=== PATIENT | female | born 1985 | race Caucasian/White ===

== ENCOUNTER → 2017-12-20 | Outpatient (CLI) | payer OTHER ==
[~2017-12-20] MED LIST: IRON325 M1 PO; MOTRIN 600600 MG/TAB PO; PERCOCET 325 MG1 TA2 PO; PRENATAL1 TA1 PO; ZYRTEC 10MG10 MG PO
== END ==
LOC: COL.LAB 10:19
DX: Z01.89 Encounter for other specified special examinations (principal); Z53.9 Procedure and treatment not carried out, unspecified reason

== ENCOUNTER → 2017-12-20 | Outpatient (CLI) | payer OTHER ==
[2017-12-20 16:21] LABS: BASO # 0.1 (0.0-0.2); BASO % 0.5 % (0.0-2.0); EOS # 0.2 (0.0-0.7); EOS % 2.4 % (0-4.0); GRAN # 6.4 (1.4-6.5); GRAN % 64.3 % (42.2-75.2); HEMOGLOBIN 12.1 g/dl (12.5-16.0); LYMPH # 2.6 (1.2-3.4); LYMPH % 25.8 % (20.0-51.0); MEAN CELL VOLUME 91 fl (80.0-100.0); MEAN CORPUSCULAR HEMOGLOBIN 30 pg (27.0-31.0); MEAN CORPUSCULAR HGB CONC 33 g/dl (33.0-37.0); MONO # 0.7 (0.1-0.6); MONO % 6.5 % (1.7-9.3); PLATELET COUNT 417 K/mm3 (130-400); RED BLOOD COUNT 4.05 M/mm3 (4.10-5.30); REDCELL DISTRIBUTION WIDTH-CV 12.6 % (11.5-14.5)
[2017-12-20 16:30] LABS: CALCIUM 8.9 mg/dL (8.4-10.2); CREATININE, serum 0.62 mg/dL (0.52-1.25); POTASSIUM 4.1 mmol/L (3.4-5.0)
== END ==
LOC: COL.LAB 10:25
PROVIDERS: Family Medicine
DX: R42 Dizziness and giddiness (principal)

== ENCOUNTER → 2017-12-20 | Outpatient (CLI) | payer BC, OTHER | LOC: COL.LAB 10:11 | DX: Z01.89 Encounter for other specified special examinations (principal) ==

== ENCOUNTER → 2019-09-19 | Outpatient (CLI) | payer BC, OTHER ==
[~2019-09-19] MED LIST changes: +NORCO 325 MG-51 TAB PO; +ZOLOFT 50MG50 MG PO; +[UNRECOGNIZED DRUG - CODE] PO
[2019-09-19 08:51] LABS: ALBUMIN 4.5 gm/dL (3.5-5.0); BASO # 0.1 (0.0-0.2); BASO % 0.6 % (0.0-2.0); BILIRUBIN,TOTAL 1.3 mg/dL (0.0-1.0); CALCIUM 9.8 mg/dL (8.4-10.2); CREATININE, serum 0.75 (0.52-1.25); EOS # 0.3 (0.0-0.7); EOS % 3.1 % (0-4.0); GRAN % 57.3 % (42.2-75.2); HEMATOCRIT 40.1 % (37.0-47.0); HEMOGLOBIN 13.1 g/dl (12.5-16.0); LYMPH # 2.6 (1.2-3.4); LYMPH % 29.4 % (20.0-51.0); MEAN CELL VOLUME 91 fl (80.0-100.0); MEAN CORPUSCULAR HEMOGLOBIN 30 pg (27.0-31.0); MEAN CORPUSCULAR HGB CONC 33 g/dl (33.0-37.0); MEAN PLATELET VOLUME 8.8 fl (7.4-10.4); MONO # 0.8 (0.1-0.6); PLATELET COUNT 417 K/mm3 (130-400); RED BLOOD COUNT 4.41 M/mm3 (4.10-5.30); REDCELL DISTRIBUTION WIDTH-CV 13.1 % (11.5-14.5); TOTAL PROTEIN 8.6 gm/dL (6.4-8.2)
== END ==
LOC: COL.RAD 08:13 → COL.LAB 08:13 → COL.RAD 10:30
DX: K80.20 Calculus of gallbladder without cholecystitis without obstruction (principal)

== ENCOUNTER 2019-09-25 07:34 | Day surgery (SDC) | payer BC, OTHER ==
[~2019-09-25] VITALS: Ht 165.1 cm; Wt 92.7 kg
[~2019-09-25 07:34] MED LIST changes: -NORCO 325 MG-51 TAB PO; -ZOLOFT 50MG50 MG PO; -[UNRECOGNIZED DRUG - CODE] PO
[2019-09-25 08:07] VITALS: BP 124/84; PULSE 87; TEMP 97.9
[2019-09-25] MEDS ORDERED: ZOLOFT 50MG50 MG PO (08:11)
[2019-09-25] MEDS ORDERED: [UNRECOGNIZED DRUG - CODE] PO (08:12)
--- NOTE | 2019-09-25 08:13 | NUR ---
TO RM AT 0737- CALL LIGHT IN REACH WILL CALL FOR RIDE HOME
[2019-09-25] MEDS ORDERED: NORCO 325 MG-51 TAB PO (11:23)
[2019-09-25 11:55] VITALS: BP 124/78; PULSE 88; TEMP 97.7
--- NOTE | 2019-09-25 11:55 | NUR ---
TO RM 5 PER CART FROM PACU. C/O "SORENESS AND TIGHTNESS" D DENIES NAUSEA OR VOMITING. 02 SAT 92% ON ROOM AIR ENCOURAGED TO TAKE DEEP BREATHS BANDAIDES OVER INCISIONS SITES CLEAN DRY AND INTACT. PATIENT EATING ICE CHIPS
[2019-09-25 12:10] VITALS: BP 108/87; PULSE 81
--- NOTE | 2019-09-25 12:10 | NUR ---
RECEIVED ICE WATER AND CRACKERS.
[2019-09-25 12:25] VITALS: BP 129/78; PULSE 91
--- NOTE | 2019-09-25 12:25 | NUR ---
C/O INCREASED TIGHTNESS ACROSS ABDOMEN. ENCOURAGED PATIENT TO PASS GAS AND BELTCH.
--- NOTE | 2019-09-25 12:30 | NUR ---
RECEIVED NORCO 5MG 1 TAB.
--- NOTE | 2019-09-25 12:45 | NUR ---
RESTING QUIETLY AND EATING ICE CHIPS.
[2019-09-25 13:00] VITALS: BP 130/64; PULSE 85
--- NOTE | 2019-09-25 13:00 | NUR ---
RECEIVED KYAWO PER REQUEST.
--- NOTE | 2019-09-25 13:15 | NUR ---
AMBULATED TO [facility] WITH ASSIST. PATIENT VOIDED AND AMBULATED BACK TO BED. PATIENT STATED SHE BELTCHED AND FELT MUCH BETTER.
[2019-09-25 13:34] VITALS: BP 143/81; PULSE 92
--- NOTE | 2019-09-25 13:35 | NUR ---
RECEIVED DISCHARGE INSTRUCTIONS AND VERBALIZED UNDERSTANDING. FLUSHED INT AND WRAPPED WITH COBAN. PATIENT TO USE INT FOR ERCP SCHEDULED FOR 09/26/2019
--- NOTE | 2019-09-25 14:00 | NUR ---
DISCHARGED PER WC BY NURSING STAFF TO PRIVATE CAR IN CARE OF
== END 2019-09-25 14:24 | disposition home or self-care (01) ==
LOC: SDCO 07:34
DX: K80.10 Calculus of gallbladder with chronic cholecystitis without obstruction (principal); I10 Essential (primary) hypertension; E78.00 Pure hypercholesterolemia, unspecified; J30.2 Other seasonal allergic rhinitis; E28.2 Polycystic ovarian syndrome; F41.9 Anxiety disorder, unspecified; Z91.048 Other nonmedicinal substance allergy status
CPT/HCPCS: J0690; J1100; J1885; J2175; J2405; J2704; J3010; J7120; Q9967

== ENCOUNTER 2019-09-26 11:12 | Day surgery (SDC) | payer BC, OTHER ==
[2019-09-25 11:55] VITALS: BP 124/78; PULSE 88; TEMP 97.7
--- NOTE | 2019-09-25 11:55 | NUR ---
TO RM 5 PER CART FROM PACU. ALERT ORIENTED X3 TALKING TO STAFF . C/O "SOME PAIN BUT MOSTLY TIGHTNESS. BANDAIDES OVER 3 INCISION SITES CLEAN DRY INTACT. ENCOURAGED PATEIENT TO TAKE DEEP BEATHES. DENIES N/V. EATING ICE CHIPS.
[2019-09-25 12:10] VITALS: BP 108/87; PULSE 81
--- NOTE | 2019-09-25 12:10 | NUR ---
RECEIVED WATER PATIENT C/O ABDOMEN FEELING TIGHT. ENCOURAGED PATIENT TO BELTCH.
[2019-09-25 12:25] VITALS: BP 129/78; PULSE 91
--- NOTE | 2019-09-25 12:25 | NUR ---
C/O PAIN "MAYBE A LITTLE WORSE"
--- NOTE | 2019-09-25 12:30 | NUR ---
RECEIVED NORCO 5MG 1 TAB.
[2019-09-25 12:35] VITALS: BP 145/75; PULSE 83
[2019-09-25 12:45] VITALS: BP 137/74; PULSE 78
[2019-09-25 13:00] VITALS: BP 1300/64; PULSE 85
--- NOTE | 2019-09-25 13:00 | NUR ---
ATE CRACKERS AND BEEN DRING WATER. RECEIVED JELLO.
--- NOTE | 2019-09-25 13:15 | NUR ---
AMBULATED TO BATHROOM, VOIDED AND AMBULATED BACK TO RECLINER. FLUSHED INT- LEFT IN TO BE USED TOMORROW FOR ERCP.
--- NOTE | 2019-09-25 13:35 | NUR ---
RECEIVED DISCHARGE INSTRUCTIONS AND VERBALIZED UNDERSTANDING. PATIENT CALLED FOR RIDE HOME.
--- NOTE | 2019-09-25 14:04 | NUR ---
DISCHARGED PER WC BY NURSING STAFF TO PRIVATE CAR IN CARE OF -[facility].
[2019-09-26] VITALS (7 sets, daily range): BP systolic 128–149; BP diastolic 48–97; PULSE 54–80; TEMP 97.5
[~2019-09-26] VITALS: Ht 165.1 cm; Wt 93.0 kg
[~2019-09-26 11:12] MED LIST changes: +NORCO 325 MG-51 TAB PO; +ZOLOFT 50MG50 MG PO; +[UNRECOGNIZED DRUG - CODE] PO
--- NOTE | 2019-09-26 11:51 | NUR ---
INT IN L WRIST LEFT IN FOLLOWING HER SURGERY YESTERDAY. INFILTRATED UPON FLUSHING THIS MORNING
--- NOTE | 2019-09-26 12:25 | NUR ---
TO RM 5 PER CART FROM ENDOSCOPY FOLLOWING AN ERCP. ALERT ORIENTED X 3, TALKING TO STAFF. DR COTTON TALKED WITH PATIENT. PATIENTS WAS CALLED AND UPDATED. PATIENT CONTINUES TO BE ON CART AND RESTING QUIELTY. DENIES NAUSEA.
--- NOTE | 2019-09-26 13:10 | NUR ---
BANDAIDES OVER INCISIONS WHICH PATIENT RECEIVED FROM SURGERY YESTERDAY. PATIENT STATED ONE OF THE INCIDIONS WHERE COMING LOOSE. THIS NURSE CHECKED THE INCISION AND EDGES WERE WELL APPROXIMATED.
--- NOTE | 2019-09-26 13:25 | NUR ---
RECEIVED APPLE JUICE. PATIENT TAKING SIPS AND RESTING.
--- NOTE | 2019-09-26 13:45 | NUR ---
C/O PAIN AND TOOK ON OF OWN PAIN MEDICATIONS SHE WAS PRESCRIBED YESTEDAY FROM DR LARSEN POST OP. AMBULATED TO BATHROOM VOIDED AND AMBULATED BACK TO RECLINER.
--- NOTE | 2019-09-26 14:07 | NUR ---
SITTING IN RECLINER AND RESTING QUIETLY
--- NOTE | 2019-09-26 14:35 | NUR ---
PATIENT STATED SHE WAS FEELING BETTER AND READY TO GO HOME.
--- NOTE | 2019-09-26 14:40 | NUR ---
RECEIVED DISCHARGE INSTRUCTIONS AND VERBALIZED UNDERSTANDING DISCONTINUED IV AND INT- CATHETER INTACT PATIENT GETTING DRESSED.
--- NOTE | 2019-09-26 14:57 | NUR ---
DISCHARGED PER WC BY NURSING STAFF TO PRIVATE CAR IN CARE OF .
== END 2019-09-26 14:59 | disposition home or self-care (01) ==
LOC: SDCO 11:12
DX: K80.50 Calculus of bile duct without cholangitis or cholecystitis without obstruction (principal); I10 Essential (primary) hypertension; E78.00 Pure hypercholesterolemia, unspecified; E28.2 Polycystic ovarian syndrome; J30.2 Other seasonal allergic rhinitis; E66.9 Obesity, unspecified; Z90.49 Acquired absence of other specified parts of digestive tract
CPT/HCPCS: C1769; J2704; J7030; Q9967

== ENCOUNTER 2020-05-22 10:38 | Emergency (ER) | payer BC, OTHER ==
[~2020-05-22] VITALS: Ht 165.1 cm; Wt 90.9 kg
[2020-05-22 10:51] VITALS: TEMP 98.2
[2020-05-22 11:23] LABS: BASO % 0.4 % (0.0-2.0); EOS # 0.1 (0.0-0.7); EOS % 1.2 % (0-4.0); GRAN # 8.4 (1.4-6.5); GRAN % 74.7 % (42.2-75.2); HEMATOCRIT 39.8 % (37.0-47.0); LYMPH # 1.9 (1.2-3.4); LYMPH % 16.6 % (20.0-51.0); MEAN CELL VOLUME 90 fl (80.0-100.0); MEAN CORPUSCULAR HEMOGLOBIN 29 pg (27.0-31.0); MEAN CORPUSCULAR HGB CONC 33 g/dl (33.0-37.0); MEAN PLATELET VOLUME 8.5 fl (7.4-10.4); MONO # 0.8 (0.1-0.6); MONO % 6.8 % (1.7-9.3); PLATELET COUNT 437 K/mm3 (130-400); RED BLOOD COUNT 4.43 M/mm3 (4.10-5.30); REDCELL DISTRIBUTION WIDTH-CV 12.6 % (11.5-14.5)
[2020-05-22 11:49] LABS: ALBUMIN 4.5 gm/dL (3.5-5.0); BILIRUBIN,TOTAL 0.5 mg/dL (0.0-1.0); C-REACTIVE PROTEIN 4.1 mg/dL (0.0-0.9); CALCIUM 9.6 mg/dL (8.4-10.2); CREATININE, serum 0.75 (0.52-1.25); POTASSIUM 3.8 mmol/L (3.4-5.0); TOTAL PROTEIN 8.1 gm/dL (6.4-8.2)
[2020-05-22 13:10] LABS: COLLECTION METHOD CLEAN CATCH
[2020-05-22 13:18] LABS: MUCOUS Present /lpf; PH 5 (5-8); SQUAMOUS EPITHELIAL 0-2 /hpf; URINE APPEARANCE Hazy; URINE BACTERIA None Seen /hpf; URINE BILIRUBIN Negative (NEGATIVE); URINE BLOOD 2+ (NEGATIVE); URINE COLOR Yellow; URINE GLUCOSE Negative (NEGATIVE); URINE KETONE 1+ (NEGATIVE); URINE LEUKOCYTE ESTERASE Negative (NEGATIVE); URINE NITRATE Negative (NEGATIVE); URINE PROTEIN(semi-quant) 1+ (NEGATIVE); URINE RBC >50 /hpf; URINE UROBILINOGEN Negative (NEGATIVE)
[2020-05-22] MEDS ORDERED: ZOFRAN ODT4 MG PO (16:29)
[2020-05-22] MEDS ORDERED: NORCO 325 MG-51 TAB PO (16:29)
[2020-05-22 16:38] VITALS: BP 140/88; PULSE 86
== END 2020-05-22 16:41 | disposition home or self-care (01) ==
LOC: COL.ER 10:38
PROVIDERS: Nurse Practitioner
DX: K52.9 Noninfective gastroenteritis and colitis, unspecified (principal)
CPT/HCPCS: J1170; J2405; J7030; Q9967

== ENCOUNTER → 2023-09-03 | Outpatient (CLI) | payer OTHER ==
[~2023-09-03] MED LIST changes: +ZOFRAN ODT4 MG PO
== END ==
LOC: MC.RAD 07:53
DX: Z12.31 Encounter for screening mammogram for malignant neoplasm of breast (principal)